=== PATIENT | female | born 1955 | race Two or more races ===

== ENCOUNTER 2020-05-18 16:50 | Outpatient (REF) | payer MEDICARE, SELFPAY ==
--- NOTE | 2020-05-18 16:58 | MM_ITS ---
EXAMINATION: MM SCREENING DIGITAL BREAST TOMOSYNTHESIS, BILATERAL CLINICAL INFORMATION: Screening. Asymptomatic. Prior outside mammography currently unavailable, [facility]. Age 65. The lifetime risk of breast cancer based on the Tyrer-Cuzick Model is 5%. COMPARISON: None. TECHNIQUE: Digital breast tomosynthesis is performed in both the craniocaudal and mediolateral oblique views along with computer-aided detection (CAD). Synthesized 2D images are generated from the tomosynthesis. FINDINGS: There are scattered areas of fibroglandular density (ACR BI-RADS breast composition Category b). Breast tissue composition borders on predominantly fatty. There are no significant masses, abnormal calcifications, or other abnormalities. The axilla and skin contours are unremarkable. Radiology department staff will attempt to retrieve prior outside mammography to allow for comparison in an addendum report. MM/MM tomosynthesis screening BI IMPRESSION: No mammographic evidence of malignancy. ASSESSMENT: BI-RADS 1: Negative RECOMMENDATION: Routine annual mammography screening. This patient's information was entered into a reminder system with a target due date for their next mammogram.
== END 2020-05-18 16:51 | disposition home or self-care (01) ==
LOC: HO.MAMMO 16:50
PROVIDERS: PCP Internal Medicine; Visit Provider Internal Medicine
DX: Z12.31 Encounter for screening mammogram for malignant neoplasm of breast (principal)
CPT/HCPCS: 77063; 77067